=== PATIENT | female | born 1950 | race Caucasian/White ===

== ENCOUNTER 2017-07-19 09:47 | Emergency (ER) | payer OTHER ==
[~2017-07-19] VITALS: Ht 177.8 cm; Wt 91.7 kg
[~2017-07-19 09:47] MED LIST: ANTIVERT25 MG PO; ATARAX,VISTARIL25 MG PO; CIPRO500 MG PO; CLEOCIN300 MG PO; CLINDAMYCIN HC300 MG PO; CORTISONE57 GM TP; DIFLUCAN150 MG PO; ENDOCET 5-3251 EACH PO; FLOMAX0.4 MG PO; FLUCONAZOLE200 MG PO; INVANZ1 GM IM; KETOROLAC TROME10 MG PO; LANTUS 3 M100 UNITS/ PO; LANTUS 3 M100 UNITS1 SC; LEVAQUIN500 MG PO; LEVAQUIN750 MG PO; LEVEMIR FL100 UNIT/1 SC; LOPRESSOR50 MG PO; NOVOLOG 10100 UNITS/ SC; NOVOLOG MI100 UNIT/M PO; NOVOLOG PE100 UNITS/ SC; OCUFLOX 0.100 DROP/5 BOTH EYES; PERCOCET 5/31 TABLET PO; PHENERGAN25 MG PR; ROXICET 5-3251 EACH PO; TEST STRIPS MC; ZANTAC150 MG PO; ZESTRIL5 MG PO; ZOFRAN ODT4 MG PO; ZOFRAN4 MG PO; [UNRECOGNIZED DRUG - OTHER] MC
[2017-07-19 11:20] LABS: BASOPHIL (%) 1.2 % (0-1); BASOPHIL COUNT 0.1 K/uL (0-0.1); EOSINOPHIL (%) 6.8 % (0-5); EOSINOPHIL COUNT 0.4 K/uL (0-0.3); HEMATOCRIT 39.5 % (36.0-46.0); HEMOGLOBIN 13.2 G/DL (11.9-15.5); IMMATURE GRANULOCYTE (%) 0.4 % (0.0-0.7); LYMPHOCYTE (%) 19.4 % (15-42); LYMPHOCYTE COUNT 1.1 K/uL (1.0-2.8); MCH 27.8 PG (29.0-34.0); MCHC 33.4 G/DL (30.0-36.0); MCV 83.2 FL (83-99); MONOCYTE (%) 9.4 % (3-12); MONOCYTE COUNT 0.5 K/uL (0-0.8); NEUTROPHIL (%) 62.8 % (45-76); NEUTROPHIL COUNT 3.5 K/uL (1.8-6.4); PLATELET COUNT 232 K/uL (156-360); RBC DIS.WIDTH-CV 13.5 % (11.8-14.6); RBC DIS.WIDTH-SD 40.9 % (39-53); RED BLOOD COUNT 4.75 M/uL (3.80-5.20); WHITE BLOOD COUNT 5.6 K/uL (4.1-10.2)
[2017-07-19 11:24] LABS: INTER. NORMALIZED RATIO 1.1
[2017-07-19 11:32] LABS: ALBUMIN 3.8 g/dL (3.2-4.8)
[2017-07-19 11:33] LABS: CHLORIDE 105 mEq/L (99-109); POTASSIUM 3.3 mEq/L (3.7-5.4); SODIUM 144 mEq/L (136-147)
[2017-07-19 11:35] LABS: GLUCOSE 117 mg/dL (70-99); TOTAL PROTEIN 6.3 g/dL (6.4-8.3)
[2017-07-19 11:37] LABS: TOTAL BILIRUBIN 0.4 mg/dL (0.0-1.0)
[2017-07-19 11:38] LABS: ALKALINE PHOSPHATASE 65 IU/L (3-129)
[2017-07-19 11:39] LABS: CREATININE 0.6 mg/dL (0.6-1.3); GFR ESTIMATE (CALCULATED) > 59 mL/min/
[2017-07-19 11:40] LABS: AST (GOT) 19 IU/L (2-34); UREA NITROGEN (BUN) 17 mg/dL (9-23)
[2017-07-19 11:42] LABS: ALT (GPT) 25 IU/L (3-49); LIPASE 15 U/L (1.0-51.0)
[2017-07-19 12:45] LABS: APPEARANCE SL.HAZY ((CLEAR)); BILIRUBIN NEGATIVE; BLOOD NEGATIVE; COLOR YELLOW ((YELLOW)); GLUCOSE (STRIP) NEGATIVE; KETONES NEGATIVE; LEUKOCYTES TRACE; NITRITE NEGATIVE; PROTEIN (STRIP) NEGATIVE; SPECIFIC GRAVITY 1.021 (1.000-1.030); UROBILINOGEN 0.2 MG/DL (0.2-1.0)
[2017-07-19 13:10] LABS: BACTERIA 2+ /HPF; EPITHELIAL CELLS RARE /HPF; HYALINE CASTS 0-5 /LPF; MUCUS TRACE /LPF; URIC ACID CRYSTALS 1+ /HPF
[2017-07-19] MEDS ORDERED: PERCOCET 5/31 TABLET PO (13:59)
[2017-07-19] MEDS ORDERED: MIRALAX17 GM PO (13:59)
[2017-07-19 15:17] VITALS: BP 146/88
== END 2017-07-19 15:40 ==
LOC: EME 09:47
PROVIDERS: Emergency Medicine
DX: K80.20 Calculus of gallbladder without cholecystitis without obstruction (principal); K59.00 Constipation, unspecified; I10 Essential (primary) hypertension; E11.9 Type 2 diabetes mellitus without complications; Z79.4 Long term (current) use of insulin; G43.909 Migraine, unspecified, not intractable, without status migrainosus; J30.1 Allergic rhinitis due to pollen; Z87.442 Personal history of urinary calculi; Z85.42 Personal history of malignant neoplasm of other parts of uterus; Z90.710 Acquired absence of both cervix and uterus; Z88.2 Allergy status to sulfonamides; Z88.1 Allergy status to other antibiotic agents
CPT/HCPCS: 71045; 74176; 80053; 81003; 83690; 85025; 85610; 87077; 87086; 87186; 99281; 99285; J1885; J2405; J7030

== ENCOUNTER → 2017-11-10 | Outpatient (CLI) | payer OTHER ==
[~2017-11-10] VITALS: Ht 177.8 cm; Wt 86.2 kg
[~2017-11-10] MED LIST changes: +HUMALOG100 UNIT/2 SC; +LISINOPRIL10 MG PO; +METOPROLOL TART25 MG PO; +MIRALAX17 GM PO
[2017-11-10 09:41] LABS: CHLORIDE 105 mEq/L (99-109); POTASSIUM 3.5 mEq/L (3.7-5.4); SODIUM 144 mEq/L (136-147)
[2017-11-10 09:43] LABS: GLUCOSE 147 mg/dL (70-99)
[2017-11-10 09:46] LABS: CREATININE 0.8 mg/dL (0.6-1.3); GFR ESTIMATE (CALCULATED) > 59 mL/min/
[2017-11-10 09:47] LABS: UREA NITROGEN (BUN) 15 mg/dL (9-23)
== END | disposition home or self-care (01) ==
LOC: AMB 08:42
PROVIDERS: Internal Medicine
DX: Z12.11 Encounter for screening for malignant neoplasm of colon (principal); D12.7 Benign neoplasm of rectosigmoid junction; D12.0 Benign neoplasm of cecum; D12.3 Benign neoplasm of transverse colon; D11.9 Benign neoplasm of major salivary gland, unspecified; I10 Essential (primary) hypertension; Z85.42 Personal history of malignant neoplasm of other parts of uterus; Z79.4 Long term (current) use of insulin; Z88.2 Allergy status to sulfonamides
CPT/HCPCS: 80048; 82948; 88305; 93005; J2250